=== PATIENT | male | born 1955 | race Two or more races ===

== ENCOUNTER 2023-06-09 12:46 | Inpatient (IN) | payer MEDICARE, MEDICAID ==
[~2023-06-09] VITALS: Ht 185.4 cm; Wt 88.3 kg
[2023-06-09] MEDS ORDERED: NITROGLYCERIN 0.4 MG SL TAB SL ONE (13:15)
[2023-06-09 13:22] LABS: Basophils # (auto) 0 10 ^3/uL (0-0.2); Basophils % (auto) 0.5 % (0.0-2.0); Eosinophils # (auto) 0.1 10 ^3/uL (0-0.8); Eosinophils % (auto) 1.1 % (0.0-7.0); Hemoglobin 14.3 g/dL (13.5-17.5); Lymphocytes # (auto) 1.1 10 ^3/uL (0.4-5.4); Mean Corpuscular Hemoglobin 31.8 pg (28.0-32.0); Mean Corpuscular Hgb Conc. 34.8 g/dL (32.0-36.0); Mean Corpuscular Volume 91.4 fL (80.0-100.0); Monocytes # (auto) 0.4 10 ^3/uL (0-1.3); Monocytes % (auto) 6.4 % (0.0-12.0); Nucleated Red Blood Cells % 0.1 %; Red Blood Cells 4.49 10^6/uL (4.5-5.90); Red Cell Distribution Width 13.9 % (11.8-14.3); White Blood Cell 6.7 10^3/uL (4.4-10.8)
[2023-06-09 13:45] LABS: Alanine Aminotransferase 21 U/L (7-40); Albumin 4.6 g/dL (3.2-4.8); Alkaline Phosphatase 94 U/L (46-116); Anion Gap 8 (5-15); Aspartate Aminotransferase 28 U/L (13-40); BUN/Creatinine Ratio 10.7 (10.0-20.0); Blood Urea Nitrogen 11 mg/dL (9-23); Calcium 9.7 mg/dL (8.5-10.1); Carbon Dioxide 23 mmol/L (20-30); Chloride 108 mmol/L (98-107); Glucose 102 mg/dL (74-106); Potassium 3.4 mmol/L (3.5-5.1); Sodium 139 mmol/L (136-145)
[2023-06-09 13:46] LABS: Bilirubin, Total 2.1 mg/dL (0.2-1.0); Total Protein 7.4 g/dL (5.7-8.2)
[2023-06-09] MEDS ORDERED: ONDANSETRON HCL 4 MG/2 ML VIAL IV PRN (17:45)
[2023-06-09] MEDS ORDERED: ACETAMINOPHEN 325 MG TAB PO PRN (17:45)
[2023-06-09] MEDS ORDERED: POTASSIUM EFFERVESENT TAB 25 MEQ PO ONE ×2 (18:15→20:00)
[2023-06-09 18:27] LABS: Urine Bacteria NONE SEEN /hpf (None Seen); Urine Blood TRACE /uL (Negative); Urine Clarity HAZY (Clear); Urine Color Yellow (Yellow); Urine Mucus MODERATE (None Seen); Urine Protein, UAD TRACE (Negative); Urine Specific Gravity 1.026 (1.001-1.035); Urine WBC 3 /hpf (0 - 3); Urine pH 6.5 (5.0-8.0)
[2023-06-09 18:38] LABS: INR 1.48 (0.9-1.15); Prothrombin Time 15.1 sec (9.3-11.8)
[2023-06-09] MEDS ORDERED: WARFARIN SODIUM 2.5 MG TAB PO ONE (20:00)
[2023-06-09] MEDS: ATORVASTATIN 20 MG TAB PO SCH (22:37)
[2023-06-09] MEDS: METOPROLOL TARTRATE 25 MG TAB PO SCH (22:38)
[2023-06-10] VITALS (8 sets, daily range): BP systolic 116–147; BP diastolic 63–90; PULSE 50–75; RESP 17–18; TEMP 95–98.7; O2SAT 92–98
[2023-06-10] MEDS: MORPHINE SULFATE 4 MG/ML SYR/VIAL IV PRN ×5 (00:08→22:18)
[2023-06-10] MEDS: METOPROLOL TARTRATE 25 MG TAB PO SCH ×2 (01:46→22:07)
[2023-06-10] MEDS ORDERED: WARF-113 PO (02:28)
[2023-06-10] MEDS: NITROGLYCERIN 0.4 MG SL TAB SL PRN ×3 (03:26→03:44)
[2023-06-10] MEDS ORDERED: NICOTINE 14 MG/24HR TOPICAL PATCH TD ONE (05:45)
[2023-06-10 07:48] LABS: Basophils # (auto) 0 10 ^3/uL (0-0.2); Basophils % (auto) 0.7 % (0.0-2.0); Eosinophils # (auto) 0.1 10 ^3/uL (0-0.8); Eosinophils % (auto) 2.4 % (0.0-7.0); Hematocrit 37.9 % (41.0-53.0); Hemoglobin 13.1 g/dL (13.5-17.5); Lymphocytes # (auto) 1.3 10 ^3/uL (0.4-5.4); Lymphocytes % (auto) 23.3 % (10.0-50.0); Mean Corpuscular Hemoglobin 32.1 pg (28.0-32.0); Mean Corpuscular Hgb Conc. 34.6 g/dL (32.0-36.0); Mean Corpuscular Volume 92.8 fL (80.0-100.0); Monocytes # (auto) 0.6 10 ^3/uL (0-1.3); Neutrophils # (auto) 3.6 10 ^3/uL (1.6-8.6); Neutrophils % (auto) 63.6 % (37.0-80.0); Red Blood Cells 4.09 10^6/uL (4.5-5.90); White Blood Cell 5.6 10^3/uL (4.4-10.8)
[2023-06-10 07:51] LABS: Alanine Aminotransferase 15 U/L (7-40); Albumin 4.2 g/dL (3.2-4.8); Aspartate Aminotransferase 22 U/L (13-40); Chloride 109 mmol/L (98-107); Potassium 4.1 mmol/L (3.5-5.1); Sodium 141 mmol/L (136-145)
[2023-06-10 07:52] LABS: Total Protein 6.7 g/dL (5.7-8.2)
[2023-06-10] MEDS ORDERED: ADENOSINE 74 MG in GIVE UN-DILUTED 0 ML IV STA (07:52)
[2023-06-10 07:54] LABS: Anion Gap 5 (5-15); Calcium 9.6 mg/dL (8.5-10.1); Carbon Dioxide 27 mmol/L (20-30)
[2023-06-10 07:59] LABS: BUN/Creatinine Ratio 16.2 (10.0-20.0); Blood Urea Nitrogen 18 mg/dL (9-23); Glucose 80 mg/dL (74-106)
[2023-06-10 08:00] LABS: Alkaline Phosphatase 83 U/L (46-116)
[2023-06-10 08:03] LABS: Triglycerides 92 mg/dL (< 150)
[2023-06-10 08:04] LABS: LDL Cholesterol 99 mg/dL (< 100)
[2023-06-10 08:05] LABS: Cholesterol 154 mg/dL (< 200); HDL Cholesterol 36 mg/dL (40-59)
[2023-06-10 08:12] LABS: INR 1.46 (0.9-1.15)
[2023-06-10] MEDS: DOCUSATE SOD 100 MG CAP PO SCH (08:46)
[2023-06-10] MEDS: ASPirin 81 mg TAB PO SCH (08:55)
[2023-06-10] MEDS ORDERED: PANTOPRAZOLE 40 MG TAB PO ONE (10:45)
[2023-06-10 12:20] LABS: Amphetamine Screen, Urine Neg (NEGATIVE); Barbiturate Scree,Urine Neg (NEGATIVE); Benzodiazephine Screen, Urine Neg (NEGATIVE); Cannabinoid Screen, Urine Neg (NEGATIVE); Cocaine Screen, Urine Neg (NEGATIVE); Opiate Scree,Urine Pos (NEGATIVE); Phencyclidine Screen, Urine Neg (NEGATIVE)
[2023-06-10] MEDS ORDERED: WARFARIN SODIUM 2.5 MG TAB PO ONE (17:00)
[2023-06-10 18:24] LABS: Urine Bacteria NONE SEEN /hpf (None Seen); Urine Blood Negative /uL (Negative); Urine Clarity HAZY (Clear); Urine Color Yellow (Yellow); Urine Protein, UAD Negative (Negative); Urine Specific Gravity 1.019 (1.001-1.035); Urine WBC 2 /hpf (0 - 3); Urine pH 7.5 (5.0-8.0)
[2023-06-10] MEDS: ATORVASTATIN 20 MG TAB PO SCH (22:07)
[2023-06-11 05:22] VITALS: BP 114/66; PULSE 53; RESP 19; TEMP 97.6; O2SAT 91
[2023-06-11 06:25] LABS: INR 1.86 (0.9-1.15); Prothrombin Time 18.8 sec (9.3-11.8)
[2023-06-11 07:08] LABS: Basophils # (auto) 0 10 ^3/uL (0-0.2); Mean Corpuscular Hgb Conc. 33.5 g/dL (32.0-36.0)
[2023-06-11 07:17] LABS: Basophils % (auto) 0.4 % (0.0-2.0); Eosinophils # (auto) 0.3 10 ^3/uL (0-0.8); Eosinophils % (auto) 3.7 % (0.0-7.0); Hematocrit 40.2 % (41.0-53.0); Hemoglobin 13.5 g/dL (13.5-17.5); Lymphocytes # (auto) 1.2 10 ^3/uL (0.4-5.4); Lymphocytes % (auto) 15.8 % (10.0-50.0); Mean Corpuscular Hemoglobin 31.6 pg (28.0-32.0); Mean Corpuscular Volume 94.4 fL (80.0-100.0); Monocytes # (auto) 0.6 10 ^3/uL (0-1.3); Monocytes % (auto) 8.7 % (0.0-12.0); Neutrophils # (auto) 5.2 10 ^3/uL (1.6-8.6); Neutrophils % (auto) 71.4 % (37.0-80.0); Nucleated Red Blood Cells % 0.5 %; Red Blood Cells 4.26 10^6/uL (4.5-5.90); White Blood Cell 7.3 10^3/uL (4.4-10.8)
[2023-06-11 07:30] VITALS: PULSE 60; RESP 19; O2SAT 94
[2023-06-11 07:57] LABS: Platelet Estimate Adequate
[2023-06-11 08:00] VITALS: PULSE 57
[2023-06-11 09:00] VITALS: BP 127/73; PULSE 60; RESP 20; TEMP 97.7; O2SAT 94
[2023-06-11] MEDS: ASPirin 81 mg TAB PO SCH (09:45)
[2023-06-11] MEDS: DOCUSATE SOD 100 MG CAP PO SCH (09:45)
[2023-06-11] MEDS: METOPROLOL TARTRATE 25 MG TAB PO SCH (09:45)
[2023-06-11] MEDS ORDERED: PANTOPRAZOLE 40 MG TAB PO SCH (10:00)
[2023-06-11] MEDS ORDERED: KETOROLAC TROMETH 30 MG/ML 1ML VIAL IV ONE (10:45)
[2023-06-11 13:00] VITALS: BP 129/72; PULSE 57; RESP 18; TEMP 97.2; O2SAT 94
[2023-06-11 13:22] LABS: Chloride 109 mmol/L (98-107); Sodium 140 mmol/L (136-145)
[2023-06-11 13:23] LABS: Anion Gap 8 (5-15); Calcium 9.5 mg/dL (8.5-10.1); Carbon Dioxide 23 mmol/L (20-30)
[2023-06-11 13:28] LABS: BUN/Creatinine Ratio 20.4 (10.0-20.0); Blood Urea Nitrogen 23 mg/dL (9-23); Glucose 95 mg/dL (74-106)
[2023-06-11] MEDS ORDERED: WARFARIN SODIUM 2 MG TAB PO ONE (17:00)
[2023-06-11 17:15] VITALS: BP 137/81; PULSE 61; RESP 19; TEMP 97.4; O2SAT 94
== END 2023-06-11 20:00 | disposition home or self-care (01) | DRG 206 ==
LOC: ER 12:46 → TELE 17:48 → TELE-EAST 17:48
PROVIDERS: ADMIT Nurse Practitioner Family; ATTEND Internal Medicine
DX: M94.0 Chondrocostal junction syndrome [Tietze] (principal); I25.10 Atherosclerotic heart disease of native coronary artery without angina pectoris; E87.5 Hyperkalemia; F10.10 Alcohol abuse, uncomplicated; F17.210 Nicotine dependence, cigarettes, uncomplicated; Z79.01 Long term (current) use of anticoagulants; Z95.1 Presence of aortocoronary bypass graft; Z95.2 Presence of prosthetic heart valve; Z86.73 Personal history of transient ischemic attack (TIA), and cerebral infarction without residual deficits; Z82.0 Family history of epilepsy and other diseases of the nervous system; Z71.6 Tobacco abuse counseling
CPT/HCPCS: 36415; 71046; 78452; 80048; 80053; 80061; 80307; 81001; 83036; 83735; 83880; 84100; 84443; 84484; 85025; 85379; 85610; 93005; 93017; 93306; 99291; G0378; J0153; J1885